=== PATIENT | female | born 1955 | race Caucasian/White ===

== ENCOUNTER → 2020-09-15 | Outpatient (CLI) | payer MEDICARE, OTHER ==
[~2020-09-15] MED LIST: CYCL10TA2 PO; ESOM40CA PO; ESTR2TAB PO; IOHEXOL 180 MG/ML 10 ML VIAL. INT ART ONE; LEVO5TAB2 PO; LIDOCAINE 1% Multi-Dose 20 ML VIAL. ID ONE; MELO15TA23 PO; PRAZ2CAP2 PO; SERT25TA PO
--- NOTE | 2020-09-15 17:53 | KCIC ---
STUDY: CT right upper extremity with contrast INDICATION: Impingement syndrome. Decreased range of motion. Pain. COMPARISON: Right shoulder radiographs 06/09/2020 TECHNIQUE: CT imaging of the right shoulder performed after the intra-articular injection of Omnipaque 180. The injection portion of the procedure is detailed separately. One or more of the following individualized dose reduction techniques were utilized for this examination: 1. Automated exposure control 2. Adjustment of the mA and/or kV according to patient size 3. Use of iterative reconstruction technique. FINDINGS: AC joint: Moderate hypertrophic AC joint arthrosis. Mild subacromial spurring at the coracoacromial ligament attachment. Mild infraclavicular spurring at the AC joint. No contrast is present within the subacromial subdeltoid bursa. Rotator cuff: No high-grade or full-thickness rotator cuff tear. Very mild articular sided fraying of the supraspinatus at the critical zone and there is extremely subtle insinuation of contrast into the substance of the posterior supraspinatus 8 mm medial to the footprint, image 13 series 602. Isolated mild fatty infiltration of the infraspinatus muscle belly, image 30 series 605. No significant fatty infiltration elsewhere. Labrum: Blunted posterior/superior labrum but no discrete labral tear is seen. Long head biceps tendon: Intact and normally located. Cartilage: No full-thickness defect. Bones: Osteopenia. No acute fracture or aggressive process. Miscellaneous: Contrast preferentially decompresses out of the shoulder joint down the long head biceps tendon and along the anterior humerus beyond the obtained [id number]. No unexpected abnormality involving the axillary soft tissues or visualized right lung. IMPRESSION: 1. No high-grade or full-thickness rotator cuff tear. Very mild/low-grade articular sided fraying of the supraspinatus at the critical zone and an extremely subtle low-grade/less than 25% cross-sectional involvement, articular sided tear of the posterior supraspinatus occurring approximately 8 mm medial to the footprint. This allows for faint contrast insinuation into the tendon substance (image 5 series 603). 2. Mild infraspinatus fatty infiltration. Otherwise rotator cuff muscular bulk is maintained. 3. Intact and normally located long head biceps tendon. No labral tear is identified or full-thickness chondral defect. 4. Moderate hypertrophic AC joint arthrosis. 5. Osteopenia. Electronically signed by: JARRET CUENCA MD (09/15/2020 5:50 PM) [id number]
--- NOTE | 2020-09-15 17:55 | KCIC ---
Study: Fluoroscopically guided arthrogram of the right shoulder joint for CT Indication: Right shoulder impingement syndrome. Pain. Decreased range of motion. Contrast: Approximately 10 Omnipaque 180 Technique: A timeout was performed prior to beginning the procedure in order to confirm patient identity and laterality of the injection. The risks, benefits and alternatives of the procedure were discussed. Utilizing sterile technique, fluoroscopic guidance and local anesthesia with 1% lidocaine, the right shoulder joint was accessed utilizing a 22-gauge, 3.5" spinal needle. Confirmation of needle position was obtained with a small amount of radiopaque contrast. Subsequently, approximately 12 cc of a mixture containing 15 cc Omnipaque 180 and 5 cc lidocaine was injected. There were no immediate post procedure complications. Fluoroscopy time: 32 seconds Number of images obtained: 1 Contrast was initially isolated to the joint space but preferentially decompressed out the long head biceps tendon sheath. Impression: Technically successful fluoroscopic guided arthrogram of the right shoulder joint without immediate postprocedure complication. Electronically signed by: JARRET CUENCA MD (09/15/2020 5:52 PM) [id number]
== END ==
LOC: KCIC 13:48
PROVIDERS: ATTEND Orthopaedic Surgery
DX: M75.41 Impingement syndrome of right shoulder (principal); M19.011 Primary osteoarthritis, right shoulder; M85.811 Other specified disorders of bone density and structure, right shoulder; Z88.8 Allergy status to other drugs, medicaments and biological substances; Z79.899 Other long term (current) drug therapy
CPT/HCPCS: 23350; 73201; 77002; J3490; Q9965; 73040

== ENCOUNTER → 2020-11-11 | Outpatient (CLI) | payer MEDICARE, OTHER ==
[~2020-11-11] MED LIST changes: +AZEL137S3 NS; +CELE100C PO; +CLONAZEPAM1 MG PO; +CYAN25008 PO; +DICL100G54 TP; +DONE10TA61 PO; +FEXO180T81 PO; +FLUT1DIS3 IH; +HYDR-2761 PO; -IOHEXOL 180 MG/ML 10 ML VIAL. INT ART ONE; -LIDOCAINE 1% Multi-Dose 20 ML VIAL. ID ONE; +MIRA50TA PO; +MIRT-34 PO; +TOPI200T6 PO; +TRAZ150T49 PO; +VENTOLIN HFA18 GM INH; +ranitidine
== END ==
LOC: LAB 13:14
PROVIDERS: ATTEND Orthopaedic Surgery
DX: Z01.812 Encounter for preprocedural laboratory examination (principal); Z20.828 Contact with and (suspected) exposure to other viral communicable diseases
CPT/HCPCS: U0003

== ENCOUNTER 2020-11-14 06:03 | Day surgery (SDC) | payer MEDICARE, OTHER ==
[~2020-11-14] VITALS: Ht 157.5 cm; Wt 47.6 kg
[2020-11-14] MEDS ORDERED: LIDOCAINE 2% PF 5 ML VIAL. ONE (06:31)
[2020-11-14] MEDS ORDERED: PROPOFOL 10 MG/ML (20ML) VIAL. IV ONE (06:31)
[2020-11-14] MEDS ORDERED: fentaNYL PF VIAL 100 MCG/2 ML VIAL ONE ×2 (06:31→11:06)
[2020-11-14] MEDS ORDERED: DEXAMETHASONE SOD PHOS 4 MG/ML VIAL ONE (06:31)
[2020-11-14] MEDS ORDERED: ONDANSETRON PF 4 MG/2 ML VIAL. ONE (06:31)
[2020-11-14] MEDS ORDERED: PHENYLEPHRINE in 0.9% NACL PF 1 MG/10 ML SYRINGE. IV ONE (06:31)
[2020-11-14] MEDS ORDERED: ONDANSETRON PF 4 MG/2 ML VIAL. IV PRN (07:00)
[2020-11-14] MEDS ORDERED: fentaNYL PF VIAL 100 MCG/2 ML VIAL IV PRN ×2 (07:00)
[2020-11-14] MEDS ORDERED: LIDOCAINE 1% PF 2 ML VIAL. ID PRN (07:00)
[2020-11-14] MEDS ORDERED: HYDROmorphone 2 MG/ML VIAL IV PRN (07:00)
[2020-11-14] MEDS ORDERED: MORPHINE SULFATE 2 MG/ML VIAL. IV PRN (07:00)
[2020-11-14] MEDS ORDERED: EPINEPHrine VIAL 30 MG/30 ML VIAL ONE (07:03)
[2020-11-14] MEDS: IV RINGERS,LACTATED 1000ML 1,000 ML IV SCH ×2 (07:05→11:11)
[2020-11-14] MEDS ORDERED: MIDAZOLAM HCL/PF 2 MG/2 ML VIAL. ONE (07:12)
--- NOTE | 2020-11-14 08:00 | PDOC1 ---
History and Physical Date of Admission Date of Admission DATE: 11/14/20 TIME: 07:55 History of Present Illness History of Present Illness Christina is a 64-year-old with right shoulder pain. She is right handed and lives with a roommate in [place]. History of dementia. She wears hearing aids. She has known cervical spine arthritis with past fusion. Patient describes an injury in March when she fell on her right shoulder (she does not remember the date of the fall). She attributes her fall to balance difficulties and locates pain to her right shoulder and right wrist. She has pain holding a gallon of milk, reaching overhead, or sleeping on her side. She recently had a shoulder inje ction that helped. Patient also locates pain to her right wrist that makes holding objects difficult and is interfering with daily activities. I injected her shoulder and prescribed physical therapy. PT causes increase in pain in shoulder but doesn't help. PCP put her on tramadol for pain but it doesn't help much. She reports that her shoulder feels "a little better" due to her physical therapy and 2 past injections. However, she has been dealing with her pain for at least 7-8 months and believes that her pain is affecting her bipolar personality disorder and "ability to keep going". She is tearful and notes that her pain is making her lose weight. She is interested in surgery given her failure of other treatments and continued severe pain. The only recent change in her health history is that they are concerned about possible pancreatitis and she has further work-up planned. She is here today for elective shoulder surgery including right shoulder arthroscopy, subacromial decompression, probable rotator cuff repair, and distal clavicle excision. Past Medical History CENTRAL NERVOUS SYSTEM: Dementia Psych: Bipolar Musculoskeletal: Osteoarthritis Past Surgical History Past Surgical History: Cholecystectomy, Hysterectomy, Other (cervical spine surgery, left rotator cuff repair 2004) Family History Family History: Cancer, Heart Disease Social History Smoke: 1 pack per day ALCOHOL: occassional Current Medications Current Medications Current Medications Bupivacaine HCl/ Epinephrine Bitart (Sensorcaine-Epi 0.25%-1:[id number] Mpf) 30 ml 1X ONCE INJ ; Start 11/14/20 at 08:00; Stop 11/14/20 at 08:01 Ondansetron HCl (Zofran) 4 mg PRN Q6HRS PRN IV NAUSEA/VOMITING; Start 11/14/20 at 07:00; Stop 11/15/20 at 06:59 Fentanyl Citrate (Fentanyl 2ml Vial) 25 mcg PRN Q5MIN PRN IV MILD PAIN 1-3; Start 11/14/20 at 07:00; Stop 11/15/20 at 06:59 Fentanyl Citrate (Fentanyl 2ml Vial) 50 mcg PRN Q5MIN PRN IV MODERATE TO SEVERE PAIN; Start 11/14/20 at 07:00; Stop 11/15/20 at 06:59 Morphine Sulfate (Morphine Sulfate) 1 mg PRN Q10MIN PRN IV SEVERE PAIN 7-10; Start 11/14/20 at 07:00; Stop 11/15/20 at 06:59 Ringer's Solution 1,000 ml @ 30 mls/hr Q24H IV Last administered on 11/14/20at 07:05; Start 11/14/20 at 07:00; Stop 11/14/20 at 18:59 Lidocaine HCl (Xylocaine-Mpf 1% 2ml Vial) 2 ml PRN 1X PRN ID PRIOR TO IV START; Start 11/14/20 at 07:00; Stop 11/15/20 at 06:59 Hydromorphone HCl (Dilaudid) 0.5 mg PRN Q10MIN PRN IV SEV PAIN, Second choice; Start 11/14/20 at 07:00; Stop 11/15/20 at 06:59 Prochlorperazine Edisylate (Compazine) 5 mg PACU PRN PRN IV NAUSEA, MRX1; Start 11/14/20 at 07:00; Stop 11/15/20 at 06:59 Cefazolin Sodium/ Dextrose 50 ml @ 100 mls/hr 1X PREOP PRN IV PRIOR TO PROCEDURE; Start 11/14/20 at 06:00; Stop 11/14/20 at 18:00 Fentanyl Citrate (Fentanyl 2ml Vial) 100 mcg STK-MED ONCE .ROUTE ; Start 11/14/20 at 06:31; Stop 11/14/20 at 06:31; Status DC Propofol (Diprivan) 200 mg STK-MED ONCE IV ; Start 11/14/20 at 06:31; Stop 11/14/20 at 06:31; Status DC Lidocaine HCl (Lidocaine Pf 2% Vial) 5 ml STK-MED ONCE .ROUTE ; Start 11/14/20 at 06:31; Stop 11/14/20 at 06:31; Status DC Dexamethasone Sodium Phosphate (Decadron) 4 mg STK-MED ONCE .ROUTE ; Start 11/14/20 at 06:31; Stop 11/14/20 at 06:31; Status DC Ondansetron HCl (Zofran) 4 mg STK-MED ONCE .ROUTE ; Start 11/14/20 at 06:31; Stop 11/14/20 at 06:31; Status DC Phenylephrine HCl (PHENYLEPHRINE in 0.9% NACL PF) 1 mg STK-MED ONCE IV ; Start 11/14/20 at 06:31; Stop 11/14/20 at 06:31; Status DC Epinephrine HCl (Adrenalin) 30 mg STK-MED ONCE .ROUTE ; Start 11/14/20 at 07:03; Stop 11/14/20 at 07:03; Status DC Midazolam HCl (Versed) 2 mg STK-MED ONCE .ROUTE ; Start 11/14/20 at 07:12; Stop 11/14/20 at 07:12; Status DC Active Scripts Active Reported Voltaren (Diclofenac Sodium) 100 Gm Gel..gram. 100 Gm TP PRN DAILY Hydrocodone-Apap 5-325 (Hydrocodone Bit/Acetaminophen) 1 Tab Tablet 1 Tab PO PRN Q6HRS PRN Vitamin B12 (Cyanocobalamin (Vitamin B-12)) 2,500 Mcg Tablet 2,500 Mcg PO DAILY Trazodone Hcl 150 Mg Tablet 150 Mg PO HS Madai Allergy (Fexofenadine Hcl) 180 Mg Tablet 180 Mg PO DAILY Remeron (Mirtazapine) 30 Mg Tablet 30 Mg PO QHS Azelastine Hcl 137 Mcg/0.137 Ml [place].pump 137 Mcg NS PRN DAILY PRN Myrbetriq (Mirabegron) 50 Mg Tab.er.24h 50 Mg PO DAILY Celebrex (Celecoxib) 100 Mg Capsule 100 Mg PO BID 30 Days Clonazepam 1 Mg Tablet 0.5 Mg PO BID Advair 250-50 Diskus (Fluticasone/Salmeterol) 1 Each Disk.w.dev 1 Inh IH PRN BID PRN Ventolin Hfa Inhaler (Albuterol Sulfate) 18 Gm Hfa.aer.ad 2 Puff INH PRN Q4-6HRS PRN Aricept (Donepezil Hcl) 10 Mg Tablet 10 Mg PO HS Topiramate 200 Mg Tablet 200 Mg PO HS [ranitidine] 150 Mg BID Estradiol 2 Mg Tablet 1 Tab PO DAILY Allergies Allergies: Coded Allergies: varenicline (Verified Allergy, Unknown, 09/15/20) gabapentin (Verified Adverse Reaction, Intermediate, Itching, 11/13/20) naproxen (Verified Adverse Reaction, Intermediate, Itching, 11/13/20) Physical Exam General: Alert, Cooperative HEENT: Atraumatic Heart: RRR Abdomen: Soft Extremities: Other (Gross alignment of the RIGHT shoulder is normal. Tenderness to palpation of the rotator cuff insertion and AC joint. Strength is 5/5 for the and infraspinatus and 4/5 for the supraspinatus with pain No evidence of instability. Range of motion is 90/60/30/L5. Positive Neer's, Matias, and Izabella's impingement tests. Skin, pulses, and sensation normal.) Vitals Vitals Vital Signs Date Time Temp Pulse Resp B/P (MAP) Pulse Ox O2 Delivery O2 Flow Rate FiO2 11/14/20 07:03 97.7 70 98 97.7 11/14/20 07:01 16 100/62 Room Air Images Images Reports reviewed, Images independently reviewed of the right shoulder CT scan results from [facility] on 09/15/20. Series 604 image 14 shows prominent anterior acromion spur, and prominent acromioclavicular joint osteoarthritis and osteophytes. The cuff does seem to be intact at least without any high-grade full-thickness tear. Partial tear and tendonitis likely based on my review and by report. STUDY: CT right upper extremity with contrast INDICATION: Impingement syndrome. Decreased range of motion. Pain. COMPARISON: Right shoulder radiographs 06/09/2020 TECHNIQUE: CT imaging of the right shoulder performed after the intra-articular injection of Omnipaque 180. The injection portion of the procedure is detailed separately. One or more of the following individualized dose reduction techniques were utilized for this examination: 1. Automated exposure control 2. Adjustment of the mA and/or kV according to patient size 3. Use of iterative reconstruction technique. FINDINGS: AC joint: Moderate hypertrophic AC joint arthrosis. Mild subacromial spurring at the coracoacromial ligament attachment. Mild infraclavicular spurring at the AC joint. No contrast is present within the subacromial subdeltoid bursa. Rotator cuff: No high-grade or full-thickness rotator cuff tear. Very mild articular sided fraying of the supraspinatus at the critical zone and there is extremely subtle insinuation of contrast into the substance of the posterior supraspinatus 8 mm medial to the footprint, image 13 series 602. Isolated mild fatty infiltration of the infraspinatus muscle belly, image 30 series 605. No significant fatty infiltration elsewhere. Labrum: Blunted posterior/superior labrum but no discrete labral tear is seen. Long head biceps tendon: Intact and normally located. Cartilage: No full-thickness defect. Bones: Osteopenia. No acute fracture or aggressive process. Miscellaneous: Contrast preferentially decompresses out of the shoulder joint down the long head biceps tendon and along the anterior humerus beyond the obtained [id number]. No unexpected abnormality involving the axillary soft tissues or visualized right lung. IMPRESSION: 1. No high-grade or full-thickness rotator cuff tear. Very mild/low-grade articular sided fraying of the supraspinatus at the critical zone and an extremely subtle low-grade/less than 25% cross-sectional involvement, articular sided tear of the posterior supraspinatus occurring approximately 8 mm medial to the footprint. This allows for faint contrast insinuation into the tendon substance (image 5 series 603). 2. Mild infraspinatus fatty infiltration. Otherwise rotator cuff muscular bulk is maintained. 3. Intact and normally located long head biceps tendon. No labral tear is identified or full-thickness chondral defect. 4. Moderate hypertrophic AC joint arthrosis. 5. Osteopenia. Electronically signed by: JARRET CUENCA MD (09/15/2020 5:50 PM) [id number] DICTATED and SIGNED BY: JARRET CUENCA MD DATE: 09/15/201749 VTE Prophylaxis Ordered VTE Prophylaxis Devices: Yes VTE Pharmacological Prophylaxi: No Assessment/Plan Assessment/Plan Her CT scan shows a prominent anterior acromion spur with prominent acromioclavicular joint osteoarthritis and osteophytes although her cuff seems to be intact at least without any high-grade full-thickness tear. We reviewed her report together and discussed the natural history of the condition along with the risks, benefits, and alternatives to treatment. Given her failure of steroid injections and physical therapy, my recommendation is surgery. Plan for right shoulder arthroscopy with distal clavicle excision, subacromial decompression, and possible rotator cuff repair. We discussed the potential risks of infection, neurovascular injury, fracture, bleeding, need for revision surgery, or other potential surgical or anesthetic complications. We also discussed healing expectations including postoperative use of DonJoy sling, need for physical therapy, and refrain from overhead lifting for 3 months. I described that this is a more difficult surgery for patients and he may take up to a year to heal as well. All of her questions were answered and she desires to proceed with surgery. She is here today for elective right shoulder surgery as above and all of her questions were answered. The surgical site was marked by me. Justifications for Admission Other Justification JOE GUTIÉRREZ MD Nov 14, 2020 07:59
[2020-11-14] MEDS: BUPIVACAINE-EPI 0.25%-1:200000 MPF 30 ML VIAL. INJ ONE ×2 (08:20→08:46)
[2020-11-14] MEDS ORDERED: ceFAZolin SODIUM IV Push 1 GM VIAL. IVP ONE (09:28)
[2020-11-14] MEDS ORDERED: NEOSTIGMINE METHYLSULFATE 5 MG/5 ML SYRINGE. ONE (09:34)
[2020-11-14] MEDS ORDERED: GLYCOPYRROLATE 1 MG/5 ML VIAL. ONE (09:34)
[2020-11-14] MEDS ORDERED: SEVOFLURANE > 120 MINUTES. IH ONE (09:34)
[2020-11-14] MEDS ORDERED: PROCHLORPERAZINE 10 MG/2 ML VIAL. ONE (10:37)
--- NOTE | 2020-11-14 10:56 | PDOC4 ---
Operative Note Operative Note Date of Procedure: November 14, 2020 Pre-Op Diagnosis: Traumatic incomplete tear of right rotator cuff, initial encounter - S46.011A Impingement syndrome of right shoulder - M75.41 Primary osteoarthritis, right shoulder - M19.011 Post-Op Diagnosis: Traumatic incomplete tear of right rotator cuff, initial encounter - S46.011A Impingement syndrome of right shoulder - M75.41 Primary osteoarthritis, right shoulder - M19.011 Procedure: Right shoulder repair of ruptured musculotendinous cuff (rotator cuff) open, chronic CPT 61511 Arthroscopy, right shoulder, surgical decompression of subacromial space, with partial acromioplasty CPT 49381 Arthroscopy, shoulder, surgical; distal claviculectomy including distal articular surface with 10 mm of resection (Dave procedure) CPT 22235 Surgeon: Joe Wright MD Senior Energy Consultant: Paul Gasca SA Anesthesia: General EBL: 25 mL Specimens Obtained: none Complications: none Drains: none Findings: High-grade partial tear of the distal supraspinatus tendon. Extensive impingement, with prominent spurs on acromion and clavicle required subacromial decompression and resection of 10 mm of distal clavicle Implants: Mitek 5.5 mm HEALIX ADVANCE BR [place] with SABRA+TAPE Sutures x2 at medial row, 5.5 mm HEALIX ADVANCE SP BIOCOMPOSITE ANCHOR TCP/PLLA Absorbable [place] x2 at lateral row. Indications for Procedure: Christina is a 64-year-old with right shoulder pain. She is right handed. She describes an injury in March when she fell on her right shoulder. Her CT scan shows a prominent anterior acromion spur with prominent acromioclavicular joint osteoarthritis and osteophytes and a partial thickness rotator cuff tear. I previously injected her shoulder with corticosteroids and prescribed physical therapy. PT causes increase in pain in shoulder but doesn't help. PCP put her on tramadol for pain but it doesn't help much. She reports that her shoulder feels "a little better" due to her physical therapy and 2 past injections. However, she has been dealing with her pain for at least 7-8 months and believes that her pain is affecting her bipolar personality disorder and "ability to keep going". She is tearful and notes that her pain is making her lose weight. She is interested in surgery given her failure of other treatments and continued severe pain. We reviewed her report together and discussed the natural history of the condition along with the risks, benefits, and alternatives to treatment. Given her failure of steroid injections and physical therapy, my recommendation is surgery. Plan for right shoulder arthroscopy with distal clavicle excision, subacromial decompression, and possible rotator cuff repair. We discussed the potential risks of infection, neurovascular injury, fracture, bleeding, need for revision surgery, or other potential surgical or anesthetic complications. We also discussed healing expectations including postoperative use of DonJoy sling, need for physical therapy, and refrain from overhead lifting for 3 months. I described that rotator cuff repair is a more difficult surgery than some surgeries and may take a year to fully recover. All of her questions were answered and she desires to proceed with surgery. We discussed the potential risks of stiffness, infection, bleeding, scarring, continued pain or weakness, re-tear of the repairs, or other potential surgical or anesthetic complications. We discussed the expected rehabilitation and recovery. All her questions about surgery were answered and she desired to proceed. Written consent was obtained from her DPOA. Procedure in Detail: The patient was identified in the preoperative holding area. The correct right shoulder was marked by me. The patient was taken to the operating room where a general anesthesia was used. The patient was positioned in the beachchair position with the bony prominences well-padded and the eyes protected. Preoperative antibiotics were given intravenously. A timeout procedure was performed. Under sterile technique 25 mL of bupivacaine with epinephrine was injected into the subacromial space and glenohumeral joint. The limb was then thoroughly prepared with surgical ChloraPrep solution circumferentially. Sterile waterproof arthroscopy shoulder drapes were applied, along with an impervious stockinette over the arm, and a Spider arm figueroa. Posterior, posterolateral, lateral, and anterior arthroscopy portals were used. The glenohumeral joint showed normal articular surfaces. The biceps tendon was normal. The labrum showed minimal degenerative change. The distal portion of the supraspinatus severely frayed, and is partially detached from the humeral head, and the footprint is exposed when viewed from the articular side. This is a partial-thickness tear, known as a PASTA lesion. A marker suture was placed. The subacromial space was entered. The anterior acromion was prominent and there was evidence of impingement with kissing lesions of frayed tissue at the undersurface acromion and at the cuff at the location of the marker suture. The ConMed Edge thermal energy bipolar device was used for hemostasis and to resect the undersurface periosteum exposing the prominent anterior acromion. A 6.0 mm oval cj was used for the acromioplasty. A three-stage acromioplasty was performed, with the cj first laterally, removing anterior acromion, using the distal clavicle as a reference. The cj was then placed in the posterior portal, and a cutting block technique was used for smoothing of the lateral edge of the acromion tapering the anterior acromion into a Bigliani type I configuration. Final smoothing of the acromion was performed with the cj again in the lateral portal, and direct arthroscopic visualization. The previously very tight subacromial space was now nicely decompressed. This completes CPT 70874, subacromial decompression and acromioplasty. The distal clavicle was markedly arthritic and had a prominent degenerative articular surface with spurs which were also causing impingement. I removed 10 mm of bone using the arthroscopic 6 mm oval bur both from the posterior and the anterior portals, and use the ConMed Edge device for hemostasis. The entire ar ticular surface of the distal clavicle was excised and about 10 mm of bone was removed so that there is a healthy space between the residual clavicle and the acromion. The arthroscopic instruments were removed. Antibiotics were redosed. Outer gloves were changed. The skin was prepared a second time with ChloraPrep solution. An anterior lateral deltoid raphae splinting incision was used. Care was made not to extend more than 4 cm distally so as to avoid axillary nerve injury. Self-retaining retractors were placed. [facility] ambulance [facility] in addition to the self-retaining retractors. The biceps was palpated and was normal. Palpation of the rotator cuff at the area of the marker suture shows a high- grade partial-thickness tear of the anterior supraspinatus. I mobilized the cuff using a 15 blade scalpel, to complete the tear and expose the footprint. Rongeurs were used to decorticate the supraspinatus footprint, and create a "crimson duvet". A small bone punch was used in the center of the footprint for a single bleeding hole for the blood and marrow elements to supply the repaired cuff. The Mitek HEALIX anchor system was used. The bone here is very soft, and I used the 4.5 mm punch but the 5.5 millimeter screws to obtain bone purchase. The Mitek EXPRESSEW III instrument was used to pass the tapes and the sutures from each anchor through the rotator cuff tissue medially. The mattress sutures were tied on the medial side, and then the mattress suture tails were trimmed. The lateral row anchors were prepared with the 4.5 mm punch, placed in the humeral cortex cortical bone due to poor bone quality and osteopenia. The crossed tapes were then placed in the anterior and posterior anchors to create a suture bridge pattern of suture over the repaired supraspinatus tendon compressed to the footprint. Anchors and sutures were all secure and taut, with solid repair. The arthroscopic camera was used to take final photos of the open repair. The shoulder was taken through a range of motion, and the repair security confirmed. Copious saline irrigation was used. I closed the fascia of the deltoid with #0 Vicryl suture in a [id number] fashion. My ambulance assistant Campos then completed the subcutaneous closure with #2-0 Vicryl. The skin edges of the open incision were then reapproximated by my ambulance assistant with #3-0 StrataFix Monocryl suture. She repaired the portals with #3-0 Prolene. She injected an additional 30 mL of bupivacaine with epinephrine. She placed Xeroform and bulky sterile dressings. She then applied a DonJoy UltraSling. There were no apparent complications. Needle and sponge counts were correct. JOE WRIGHT MD Nov 14, 2020 10:56
[2020-11-14] MEDS ORDERED: oxyCODONE/APAP 5/325 1 TAB TABLET PO ONE (11:00)
[2020-11-14] MEDS: PROCHLORPERAZINE 10 MG/2 ML VIAL. IV PRN ×2 (11:11→11:43)
[2020-11-14 12:45] VITALS: BP 123/51
== END 2020-11-14 13:00 | disposition home or self-care (01) ==
LOC: SURG 06:03
PROVIDERS: ATTEND Orthopaedic Surgery
DX: S46.011A Strain of muscle(s) and tendon(s) of the rotator cuff of right shoulder, initial encounter (principal); M19.011 Primary osteoarthritis, right shoulder; M75.41 Impingement syndrome of right shoulder; J44.9 Chronic obstructive pulmonary disease, unspecified; K21.9 Gastro-esophageal reflux disease without esophagitis; F41.9 Anxiety disorder, unspecified; F32.9 Major depressive disorder, single episode, unspecified; Z86.73 Personal history of transient ischemic attack (TIA), and cerebral infarction without residual deficits; Z90.710 Acquired absence of both cervix and uterus; Z98.890 Other specified postprocedural states; Z90.49 Acquired absence of other specified parts of digestive tract; Z87.891 Personal history of nicotine dependence; Z72.89 Other problems related to lifestyle; Z88.8 Allergy status to other drugs, medicaments and biological substances; X58.XXXA Exposure to other specified factors, initial encounter; Y93.89 Activity, other specified; Y92.89 Other specified places as the place of occurrence of the external cause; Y99.8 Other external cause status
CPT/HCPCS: 23412; 29824; 29826; J0171; J0690; J0780; J1100; J2250; J2370; J2405; J2704; J2710; J3010; J3490; A4565; J7120

== ENCOUNTER → 2021-05-08 | Outpatient (CLI) | payer MEDICARE, OTHER ==
[~2021-05-08] MED LIST changes: +LIDOCAINE 1% Multi-Dose 20 ML VIAL. SQ ONE; +MIRA25TA PO; -MIRA50TA PO
--- NOTE | 2021-05-08 11:58 | RAD ---
EXAM: 1. ULTRASOUND-GUIDED CORE BIOPSY LEFT BREAST WITH CLIP PLACEMENT. 2. POSTCLIP DIAGNOSTIC LEFT MAMMOGRAPHY. HISTORY: Left breast mass and indeterminate calcifications. Ultrasound-guided biopsy is requested. FINDINGS: The procedure along with its risks and benefits were explained to the patient. She agreed to proceed. A timeout procedure was performed. Sonographic evaluation of the left breast redemonstrates the lesion of concern. It is seen as a hypoe choic region of soft tissue at the 2:00 position 4 cm from the nipple. The overlying skin was sterile ly prepped and infiltrated with 1% lidocaine for local anesthesia. Under ultrasound guidance, 4 core needle specimens of the target lesion were obtained using a 14-gauge biopsy device. These were submit josep in formalin. A postbiopsy clip was placed under ultrasound guidance. Pressure was held to hemosta sis. There were no immediate complications. Full-field digital mammographic views of the left breast were obtained in CC and MLO projections and interpreted on a dedicated workstation. They demonstrate the clip in correspondence with the target l esion. It also corresponds with the site of the calcifications of prior mammographic concern. IMPRESSION: 1. Successful ultrasound-guided left breast biopsy with clip placement. 2. The postbiopsy clip corresponds with the target lesion and the mammographic calcifications of conc abhinav. Electronically signed by: Miguel Coffey MD (05/08/2021 11:55 AM) [facility]
--- NOTE | 2021-05-11 15:07 | PATHOLOGY ---
[facility] Accession Number: [id number] . 01 Material submitted: . breast - LEFT BREAST MASS. Modifiers: left, 2 OCLOCK . 01 Clinical history: . 2 O'CLOCK 4 CM FN 7 MM . 02 Diagnosis: Breast tissue, left breast mass 2:00 4 cm from nipple needle biopsies: - Fibrocystic changes with the following components: - Stromal fibrosis. - Duct ectasia. - Cystic change. - Chronic inflammation. (JPM:maurisio; 05/11/2021) [facility] [place] 05/11/2021 0954 Local . 02 Comment: There is no atypia or evidence of malignancy. (JPM:maurisio; 05/11/2021) . 02 Electronically signed: . Sivakumar Joshi MD, Pathologist NPI- [id number] . 01 Gross description: . The specimen is received in formalin, labeled "Christina Ingram", "left breast mass 2:00 4 cm from the nipple". Received are multiple needle cores of pale dubois-yellow fibrofatty breast tissue, ranging in length from 0.1 cm to 0.7 cm and are 0.1 cm in diameter. The specimen is entirely submitted in cassettes A1-A3. Time removed 912 on 05-08-2021, time in formalin and 913 on 05-08-2021, time out of formalin 1850 on 05-10-2021([facility]; 05/10/2021) [facility] 05/10/2021 1058 Local . 02 Pathologist provided ICD-10: N60.12, N60.42, N62, N60.32 . 02 CPT . 451069 Specimen Comment: A courtesy copy of this report has been sent to [phone], [phone] Specimen Comment: [phone] Specimen Comment: Report sent to / DR [place] Performed at: [address] [id number] MD Xavier Aguilar MD Phone: [phone] [facility]formed [facility]: [facility] [address] [place], [place] [id number] MD Sivakumar Joshi MD Phone: [phone]
== END | disposition home or self-care (01) ==
LOC: US 08:10
PROVIDERS: ATTEND Family Medicine
DX: N63.21 Unspecified lump in the left breast, upper outer quadrant (principal); R92.8 Other abnormal and inconclusive findings on diagnostic imaging of breast; N60.12 Diffuse cystic mastopathy of left breast; N60.42 Mammary duct ectasia of left breast; J44.9 Chronic obstructive pulmonary disease, unspecified; K21.9 Gastro-esophageal reflux disease without esophagitis; F41.9 Anxiety disorder, unspecified; F32.9 Major depressive disorder, single episode, unspecified; Z90.49 Acquired absence of other specified parts of digestive tract; Z98.890 Other specified postprocedural states; Z79.899 Other long term (current) drug therapy; Z87.891 Personal history of nicotine dependence; Z88.8 Allergy status to other drugs, medicaments and biological substances
CPT/HCPCS: 19083; 77065; 88305; A4648; J3490

== ENCOUNTER 2021-08-05 11:03 | Emergency (ER) | payer MEDICARE, OTHER ==
[~2021-08-05] VITALS: Ht 144.8 cm; Wt 43.1 kg
[~2021-08-05 11:03] MED LIST changes: -LIDOCAINE 1% Multi-Dose 20 ML VIAL. SQ ONE
[2021-08-05] MEDS ORDERED: IV NORMAL SALINE 1000ML BAG 1,000 ML IV ONE (12:00)
[2021-08-05] MEDS ORDERED: ONDANSETRON PF 4 MG/2 ML VIAL. IVP ONE (12:00)
[2021-08-05 12:38] LABS: BASO % 0 % (0-3); EOS # 0.1 x10^3/uL (0.0-0.7); EOS % 1 % (0-3); HEMATOCRIT 43.4 % (36.0-47.0); HEMOGLOBIN 14.9 g/dL (12.0-15.5); LYMPH # 2.5 x10^3/uL (1.0-4.8); LYMPH % 34 % (24-48); MEAN CORPUSCULAR HEMOGLOBIN 34 pg (25-35); MEAN CORPUSCULAR HGB CONC 34 g/dL (31-37); MEAN CORPUSCULAR VOLUME 100 fL (79-100); MONO # 0.5 x10^3/uL (0.0-1.1); MONO % 6 % (0-9); NEUT # 4.3 x10^3/uL (1.8-7.7); NEUT % 58 % (31-73); PLATELET COUNT 186 x10^3/uL (140-400); RED BLOOD COUNT 4.36 x10^6/uL (3.50-5.40); RED CELL DISTRIBUTION WIDTH 12.3 % (11.5-14.5); WHITE BLOOD COUNT 7.4 x10^3/uL (4.0-11.0)
[2021-08-05 12:43] LABS: CALCIUM 8.7 mg/dL (8.5-10.1); CREATININE 0.7 mg/dL (0.6-1.0); GFR 84.5; POTASSIUM 4.8 mmol/L (3.5-5.1)
[2021-08-05 12:49] LABS: ALBUMIN 3.5 g/dL (3.4-5.0); TOTAL BILIRUBIN 0.3 mg/dL (0.2-1.0)
--- NOTE | 2021-08-05 12:56 | RAD ---
EXAM: XR CHEST 1V 08/05/2021 12:22 PM CLINICAL INDICATION: Cough COMPARISON: Chest radiograph 04/23/2021 TECHNIQUE: AP view of the chest FINDINGS: The heart and mediastinum are normal. Lungs are well-expanded. Stable mild chronic inters titial changes in the peripheral lung bases. No consolidation, pleural effusion, or pneumothorax. The re are spinal stimulator leads projecting over the thoracic spine. Cervical fusion hardware is noted. No acute osseous abnormality. IMPRESSION: Stable mild chronic interstitial changes in the peripheral lung bases. No acute abnormali ty. Electronically signed by: Xuan Zhu MD (08/05/2021 12:54 PM) [id number]
[2021-08-05 12:58] LABS: BARBITURATES NEG (NEG); BENZODIAZEPINES NEG (NEG); CANNABINOIDS NEG (NEG); COCAINE NEG (NEG); METHADONE NEG (NEG); OPIATES NEG (NEG); PHENCYCLIDINE NEG (NEG)
[2021-08-05 12:59] LABS: BILIRUBIN,URINE NEGATIVE (NEG); CLARITY,URINE CLEAR; COLOR,URINE YELLOW; NITRITE,URINE NEGATIVE (NEG); PROTEIN,URINE NEGATIVE (NEG-TRACE); UROBILINOGEN,URINE 0.2 mg/dL (0.2 mg/dL)
[2021-08-05 13:00] LABS: AMPHETAMINE/METHAMPHETAMINE NEG (NEG)
[2021-08-05 13:09] LABS: BACTERIA,URINE 0 /HPF (0-FEW); RBC,URINE 0 /HPF (0-2); WBC,URINE 0 /HPF (0-4)
--- NOTE | 2021-08-05 14:44 | PHYS DOC ---
Past Medical History Past Medical History: Bipolar Past Surgical History: Cholecystectomy, Hysterectomy, Other Additional Past Surgical Histo: sinus, bilat shoulder, neck, neuro implant device Smoking Status: Current Every Day Smoker Alcohol Use: Sober General Adult EDM: Chief Complaint: FLU SYMPTOM HPI: HPI: Patient is a 65 year old female with history of bipolar, diverticulitis, who presents to the ED today with multiple complaints. Patient is complaining of mild intermittent generalized headache, nausea, shortness of breath, diarrhea, symptoms began yesterday. Patient states she received Vincent [employer] Vincent vaccine back in January. Denies any melena. Denies any chest pain. Denies any fever. Review of Systems: Review of Systems: Constitutional: Denies fever or chills. [] Eyes: Denies change in visual acuity. [] HENT: Denies nasal congestion or sore throat. [] Respiratory: Reports shortness of breath, denies coughing Cardiovascular: Denies chest pain or edema. [] GI: Reports nausea, diarrhea. Denies abdominal pain, vomiting, bloody stools : Denies dysuria. [] Musculoskeletal: Denies back pain or joint pain. [] Integument: Denies rash. [] Neurologic: Denies headache, focal weakness or sensory changes. [] Psychiatric: Denies depression or anxiety. [] Heart Score: C/O Chest Pain: N/A Risk Factors: Risk Factors: DM, Current or recent (<one month) smoker, HTN, HLP, family history of CAD, obesity. Risk Scores: Score 0 - 3: 2.5% MACE over next 6 weeks - Discharge Home Score 4 - 6: 20.3% MACE over next 6 weeks - Admit for Clinical Observation Score 7 - 10: 72.7% MACE over next 6 weeks - Early Invasive Strategies Current Medications: Current Medications Medications (Trade) Dose Ordered Sig/Franco Start Time Stop Time Status Last Admin Dose Admin Ondansetron HCl (Zofran) 4 mg 1X ONCE 08/05/21 12:00 08/05/21 12:01 DC 08/05/21 12:49 4 MG Sodium Chloride 1,000 ml @ 1,000 mls/hr 1X ONCE 08/05/21 12:00 08/05/21 12:59 DC 08/05/21 12:49 1,000 MLS/HR Allergies: Allergies: Allergies Coded Allergies Type Severity Reaction Last Updated Verified varenicline Allergy Unknown 11/14/20 Yes gabapentin Adverse Reaction Intermediate Itching 11/14/20 Yes naproxen Adverse Reaction Intermediate Itching 11/14/20 Yes Physical Exam: PE: Constitutional: Well developed, well nourished, no acute distress, non-toxic appearance. [] HENT: Normocephalic, atraumatic, bilateral external ears normal, oropharynx moist, no oral exudates, nose normal. [] Eyes: PERRLA, EOMI, conjunctiva normal, no discharge. [] Neck: Normal range of motion, no tenderness, supple, no stridor. [] Cardiovascular:Heart rate regular rhythm, no murmur [] Lungs & Thorax: Bilateral breath sounds clear to auscultation [] Abdomen: Bowel sounds normal, soft, no tenderness, no masses, no pulsatile masses. [] Skin: Warm, dry, no erythema, no rash. [] Back: No tenderness, no CVA tenderness. [] Extremities: No tenderness, no cyanosis, no clubbing, ROM intact, no edema. [] Neurologic: Alert and oriented X 3, normal motor function, normal sensory fu nction, no focal deficits noted. [] Psychologic: Affect normal, judgement normal, mood normal. [] Current Patient Data: Labs: Laboratory Tests Test 08/05/21 11:50 08/05/21 12:10 08/05/21 12:17 SARS-CoV-2 Antigen (Rapid) Negative (NEGATIVE) Urine Collection Type Unknown Urine Color Yellow Urine Clarity Clear Urine pH 6.0 (<5.0-8.0) Urine Specific Newcomb 1.010 (1.000-1.030) Urine Protein Negative mg/dL (NEG-TRACE) Urine Glucose (UA) Negative mg/dL (NEG) Urine Ketones (Stick) Negative mg/dL (NEG) Urine Blood Trace (NEG) Urine Nitrite Negative (NEG) Urine Bilirubin Negative (NEG) Urine Urobilinogen Dipstick 0.2 mg/dL (0.2 mg/dL) Urine Leukocyte Esterase Negative (NEG) Urine RBC 0 /HPF (0-2) Urine WBC 0 /HPF (0-4) Urine Squamous Epithelial Cells Few /LPF Urine Bacteria 0 /HPF (0-FEW) Urine Opiates Screen Neg (NEG) Urine Methadone Screen Neg (NEG) Urine Barbiturates Neg (NEG) Urine Phencyclidine Screen Neg (NEG) Urine Amphetamine/Methamphetamine Neg (NEG) Urine Benzodiazepines Screen Neg (NEG) Urine Cocaine Screen Neg (NEG) Urine Cannabinoids Screen Neg (NEG) Urine Ethyl Alcohol Neg (NEG) White Blood Count 7.4 x10^3/uL (4.0-11.0) Red Blood Count 4.36 x10^6/uL (3.50-5.40) Hemoglobin 14.9 g/dL (12.0-15.5) Hematocrit 43.4 % (36.0-47.0) Mean Corpuscular Volume 100 fL (79-100) Mean Corpuscular Hemoglobin 34 pg (25-35) Mean Corpuscular Hemoglobin Concent 34 g/dL (31-37) Red Cell Distribution Width 12.3 % (11.5-14.5) Platelet Count 186 x10^3/uL (140-400) Neutrophils (%) (Auto) 58 % (31-73) Lymphocytes (%) (Auto) 34 % (24-48) Monocytes (%) (Auto) 6 % (0-9) Eosinophils (%) (Auto) 1 % (0-3) Basophils (%) (Auto) 0 % (0-3) Neutrophils # (Auto) 4.3 x10^3/uL (1.8-7.7) Lymphocytes # (Auto) 2.5 x10^3/uL (1.0-4.8) Monocytes # (Auto) 0.5 x10^3/uL (0.0-1.1) Eosinophils # (Auto) 0.1 x10^3/uL (0.0-0.7) Basophils # (Auto) 0.0 x10^3/uL (0.0-0.2) Sodium Level 139 mmol/L (136-145) Potassium Level 4.8 mmol/L (3.5-5.1) Chloride Level 105 mmol/L (98-107) Carbon Dioxide Level 23 mmol/L (21-32) Anion Gap 11 (6-14) Blood Urea Nitrogen 17 mg/dL (7-20) Creatinine 0.7 mg/dL (0.6-1.0) Estimated GFR (Cockcroft-Gault) 84.5 BUN/Creatinine Ratio 24 (6-20) H Glucose Level 74 mg/dL (70-99) Lactic Acid Level 0.7 mmol/L (0.4-2.0) Calcium Level 8.7 mg/dL (8.5-10.1) Magnesium Level 2.0 mg/dL (1.8-2.4) Total Bilirubin 0.3 mg/dL (0.2-1.0) Aspartate Amino Transferase (AST) 23 U/L (15-37) Alanine Aminotransferase (ALT) 25 U/L (14-59) Alkaline Phosphatase 67 U/L (46-116) Troponin I Quantitative < 0.017 ng/mL (0.000-0.055) DM-Rbe-B-Type Natriuretic Peptide 199 pg/mL (0-124) H Total Protein 7.0 g/dL (6.4-8.2) Albumin 3.5 g/dL (3.4-5.0) Albumin/Globulin Ratio 1.0 (1.0-1.7) Procalcitonin < 0.10 ng/mL (0.00-0.10) Laboratory Tests 08/05/21 12:17 Laboratory Tests 08/05/21 12:17 Vital Signs: Vital Signs Date Time Temp Pulse Resp B/P (MAP) Pulse Ox O2 Delivery O2 Flow Rate FiO2 08/05/21 14:14 81 17 105/55 (72) 100 Room Air 08/05/21 11:42 99.0 99.0 EKG: EK interpreted by Dr. López sinus rhythm heart rate 68 no STEMI [] Radiology/Procedures: Radiology/Procedures: []PROCEDURE: PORTABLE CHEST 1V EXAM: XR CHEST 1V 08/05/2021 12:22 PM CLINICAL INDICATION: Cough COMPARISON: Chest radiograph 04/23/2021 TECHNIQUE: AP view of the chest FINDINGS: The heart and mediastinum are normal. Lungs are well-expanded. Stable mild chronic interstitial changes in the peripheral lung bases. No consolidation, pleural effusion, or pneumothorax. There are spinal stimulator leads projecting over the thoracic spine. Cervical fusion hardware is noted. No acute osseous abnormality. IMPRESSION: Stable mild chronic interstitial changes in the peripheral lung bases. No acute abnormality. Electronically signed by: Xuan Zhu MD (08/05/2021 12:54 PM) [id number] DICTATED and SIGNED BY: XUAN ZHU MD DATE: 08/05/21 [id number] 0 Course & Med Decision Making: Course & Med Decision Making Pertinent Labs and Imaging studies reviewed. (See chart for details) This is a 65-year-old female patient presented to the ED today complaining of headache, shortness of breath, nausea, diarrhea, symptoms since yesterday. O2 sats 100% on room air. CBC CMP EKG lipase chest x-ray with no acute findings. Urine negative for infection. Negative rapid test. Patient was discharged to home. Follow-up with PCP in 1 to 2 weeks. Patient reported to the RN she is suicidal. She was put on one-to-one. Graham from [facility] came and evaluated her. Patient has 20/06 care at home and is safe to be home. Safety plan was established. She was resources for f/u judo Disclaimer: Britt Disclaimer: This electronic medical record was generated, in whole or in part, using a voice recognition dictation system. Departure Departure Impression: Primary Impression: Shortness of breath Additional Impressions: Person under investigation for COVID-19 Diarrhea Qualified Codes: R19.7 - Diarrhea, unspecified Head ache Qualified Codes: R51.9 - Headache, unspecified Disposition: 01 HOME / SELF CARE / HOMELESS Condition: STABLE Referrals: JOELLE NJ MD (PCP) follow up in 1 week with your doctor Patient Instructions: Diarrhea, [id number], Headache, FAQs Additional Instructions: You were evaluated in the emergency room, your work-up was negative for any acute findings. Please follow-up with your doctor in 1 to 2 weeks. ALEJANDRO AREVALO APRN Aug 05, 2021 14:44
[2021-08-05 15:07] VITALS: BP 109/54
== END 2021-08-05 15:55 | disposition home or self-care (01) ==
LOC: ER 11:03
DX: R06.02 Shortness of breath (principal); Z20.822 Contact with and (suspected) exposure to COVID-19; R51.9 Headache, unspecified; R19.7 Diarrhea, unspecified; F31.9 Bipolar disorder, unspecified; F17.200 Nicotine dependence, unspecified, uncomplicated; Z88.5 Allergy status to narcotic agent; Z88.8 Allergy status to other drugs, medicaments and biological substances
CPT/HCPCS: 36415; 71045; 80053; 80307; 81001; 83605; 83735; 83880; 84145; 84484; 85025; 87040; 87426; 96361; 96374; 99285; J2405; J7030; U0003; U0005